=== PATIENT | female | born 1955 | race Caucasian/White ===

== ENCOUNTER 2024-12-08 13:43 | Emergency (ER) | payer OTHER, MEDICARE, SELFPAY ==
--- OUTSIDE RECORDS SUMMARY | 2024-12-08 13:46 | XMS_ITS | Clinical Summary ---
Author Organization [facility] Address [address] [place] [id number] Care Team Providers Care Terra Cotta Setter Name Role Phone Steven Torres MD Unavailable [phone] Meggan Garcia DO Primary Care Provider [phone] Allergies Active Allergy Reactions Criticality Noted Date Comments Latex Rash 09/20/2023 Morphine Vomiting High 04/11/2010 Medications propylene glycol (Systane Complete) 0.6 % ophthalmic solution Place into the eye(s). 0 1 Active cetirizine (ZYRTEC) 10 mg tablet Take 1 Tablet (10 mg) by mouth once daily. 0 3 Active cholecalciferol, Vitamin D3, (Vitamin D-3) 5,000 unit tab tabletIndication s:Vitamin D deficiency Take 1 Tablet (5,000 units) by mouth once daily. 90 Tablet 4 Active fluticasone (50 mcg per actuation) nasal solution (FLONASE)Indicat ions:Allergic rhinitis, unspecified seasonality, unspecified trigger INHALE 1-2 SPRAYs INTO BOTH NOSTRILS ONCE DAILY. 32 g 3 5 Active calcium carbonate 600 mg calcium (1,500 mg) tablet Take 1 Tablet (600 mg) by mouth two times daily with meals. 5 Active Active Problems Problem Noted Date Diagnosed Date Basal cell carcinoma 09/20/2023 Osteopenia of multiple sites 10/06/2017 Overview (10/06/2017): DXA 2015 Multinodular goiter 04/13/2013 Overview (09/25/2016): 12/2012, follow up US 6 mo follow up ultrasound 2014 and 2016 stable; Dr. Torres recommends follow up ultrasound 2018; any change, refer back. No change, then repeat 2023. Colon polyp 05/25/2011 Overview (10/15/2020): Colonoscopy 05/2011 polyp repeat in 5 years Flexible sigmoidoscopy 10/2015 large polyp, repeat colonoscopy this summer Colonoscopy 11/2015 multiple colon polyps, consider genetic testing, repeat in 2 years Colonoscopy 10/2017 polyps, repeat in 3 years Colonoscopy 10/2020 normal, [facility] in 5 years [facility] Vitamin D deficiency 04/14/2010 Umbilical hernia without mention of obstruction or gangrene 04/11/2010 Calculus of gallbladder with out mention of cholecystitis or obstruction 02/27/2010 Allergic rhinitis, cause unspecified 08/16/2007 Dysthymic disorder 10/14/2006 Resolved Problems Problem Noted Date Diagnosed Date Resolved Date Adjustment disorder with mix ed anxiety and depressed mood 04/05/2018 04/24/2019 External hemorrhoid 08/27/2015 04/24/20 Mixed urge and stress incontinence 11/30/2012 04/24/2019 Adjustment disorder with anxiety 01/31/2007 04/11/2010 Encounters Date Type Department Care Team Description 11/30/2024 1:15 PM CDT Ancillary Procedure [facility] [place] [address] [facility] [address] [place] [address] 11/30/2024 Travel 11/26/2024 Travel 11/03/2024 7:40 AM CDT Office Visit [facility] [address] [place] [address] Meggan Garcia, DO Medicare ANNUAL (subsequent) Visit (69 year old female); Derm Problem (L toe wart) 11/03/2024 Travel 10/29/2024 Travel 09/20/2024 Refill [facility] [address] [place] [address] Meggan Garcia, Refill Request (Fluticasone (50 Mcg Per Actuation) Nasal) from Last 3 Months Immunizations Immunization Administration Dates Next Due AMB Influenza, IIV4 PF (=>6 mos Flulaval,Fluzone Fluarix)(Flu Clinic Only) 04/19/2018 COVID-19 VACCINE COMIRNATY (EldarionNTCibiem 30MCG/0.3ML) 12YO+ PFS 03/12/2023 COVID-19 vaccine (Dokogeo NTClout 30mcg/0.3mL) PF, MDV 03/31/2021,09/18/2020,08/28/2020 Influenza, High-dose Inactivated 03/05/2024 Influenza, High-dose Quadriv alent Inactivated 03/12/2023 Influenza, IIV3 (Age 6-35 mos) 04/22/2011 Influenza, IIV3 (Age >=3 years) 03/29/20 16,03/29/2015,03/20/2013,2011,04/22/2011,03/21/2010,03/14/2010 Influenza, IIV4 04/16/2021,03/06/2019,03/24/2017 Influenza, IIV4 (=>6mos) MDV 03/14/2020 Influenza,CCIIV4 PRESERV FREE 03/09/2022 Pneumococcal Conj 20-valent (Prevnar 20) 09/16/2022 Td (Age >=7 Years) 06/02/2018,06/06/1997 Tdap 11/25/2007 Zoster (Shingrix-RZV, recombinant) 05/11/2018, Family History Medical History Relation Name Comments Hyperlipidemia Brother 1 Hypertension Brother 2 Hyperlipidemia Brother 3 [place] Hypertension Brother 3 [place] Good Health Daughter Isabelle Cancer Father Lars melanoma, and h as had polyps Coronary artery disease Father Lars Heart Disease Father Lars Heart failure Father Lars Psychiatric illness Father Lars depressi on No Known Problems Half-Brother No Known Problems Half-Sister Cancer-breast Maternal Aunt 1 xx Cancer-breast Maternal Aunt 2 Alva Unknown Maternal Aunt 2 Alva No Known Problems Maternal Grandfather No Known Problems Maternal Grandmother No Known Problems Maternal Uncle Cancer Mother Veronica leukemia, in 2004/melanoma Osteoporosis Mother Veronica Cancer-breast Other 2nd cousin Cancer-colon Other dad, polyps No Known Problems Paternal Aunt Heart Disease Paternal Grandfather No Known Problems Paternal Grandmother No Known Problems Paternal Uncle Psychiatric illness Sister Unknown Sister rosamarniea Good Health Son Filemon rheumatoid arth ritis Rheum arthritis Son Filemon Relation Name Status Comments Brother 1 Brother 2 Brother 3 [place] Daughter Isabelle Alive Father Lars Half-Brother Half-Sister Maternal Aunt 1 xx Maternal Aunt 2 Alva Maternal Grandfather Maternal Grandmother Maternal Uncle Mother Veronica Other Other spouse of complications of alcohol abuse, substance abuse Paternal Aunt Paternal Grandfather Paternal Grandmother Paternal Uncle Sister Son Filemon Alive Social History Tobacco Use Types Packs/Day Years Used Date Smoking Tobacco: Never Smokeless Tobacco: Never Tobacco Cessation:Counseling Given: Yes Comments:secondhand smoke as a child Alcohol Use Standard Drinks/Week Comments Yes 0 (1 standard drink = 0.6 oz pur e alcohol) PHQ-2 Answer Date Recorded PHQ-2 TOTAL SCORE 0 11/03/2024 Social Connections Answer Date Recorded Do you often feel lonely or isolated from those around you? 0 10/29/2024 Financial Resource Strain Answer Date R ecorded Difficulty of Paying Living Expenses 3 10/29/2024 Difficulty of Paying Living Expenses Not on file 10/29/2024 Food Insecurity Answer Date Recorded Do you worry your food will run out before you are able to buy more? 1 10/29/2024 Transportation Needs Answer Date Record ed Does lack of transportation keep you from medica l appointments? 1 10/29/2024 Does lack of transportation keep you from work, meetings or getting things that you need? 1 10/29/2024 Housing Stability Answer Date Recorded What is your housing situation today? 1 10/29/2024 Utilities Answer Date Recorded Do you have trouble paying f or utilities (for example, heat, electricity, water, phone)? 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 on file Not on file Not on anant e Obstetrics History Para Term AB IAB SAB Ectopic Multiple Livin g Live Births 3 1 2 2 1 2 Date Outcome GA Total Labor Labor/2nd/3rd Weight Sex Type Anes PTL Pilar A1 A5 Name Clin SAB SAB Para Last Filed Vital Signs Vital Sign Reading Time Taken Comments Blood Pressure 108/68 11/03/2024 7:47 AM CDT Pulse 69 11/03/2024 7:47 AM CDT Temperature 36.9 C (98.4 F) 07/26/2024 8:47 AM MEDICARE BILLER Respiratory Rate 14 01/24/2024 3:22 PM CDT Oxygen Saturation 99% 11/03/2024 7:47 AM CDT Inhaled Oxygen Concentration - - Weight 64.7 kg (142 lb 9.6 oz) 11/03/2024 7:47 A M CDT Height 164.5 cm (5' 4.76) 11/03/2024 7:47 AM CD T Body Mass Index 23.9 11/03/2024 7:47 AM CDT Plan of Treatment Upcoming Encounters Date Type Department Care Team (Late st Contact Info) Description 12/22/2024 7:30 AM CDT Ancillary Procedure [facility] [address] [place] [address] Health Maintenance Due Date Last Done Comments COVID-19 vaccine series ( season) 2024 03/05/2024, 09/09/2023, 03/12/2023, Additional history exists Mammogram for age 45-75 06/01/2025 06/01/20, 05/18/2024, 05/11/2023, Additional history exists Colonoscopy through age 75 10/11/202510/11, 10/11/2020, 10/29/2017, Additional history exists BMI (ht and wt on same day) for age 18+ 11/03/2025 11/03/2024, 09/20/2023, 09/16/2022, Additional history exists Depression screening for age 12+ 11/03/2025 11/03/2024, 09/20/2023, 09/20/2023, Additional history exists Medicare Wellness for age 65+ 11/04/2025 11/03/2024, 09/20/2023, 09/16/2022 Tetanus booster 06/02/2028 06/02/2018, 11/12, 06/06/1997 Lipids for age 45-75 11/03/2029 11/03/2024, 09/20/2023, 09/16/2022, Additional history exists RSV vaccine for adults or (1 - 1-dose 75+ series) 2032 Tdap Completed 11/25/2007 Zoster (shingles) series for age 50+ Completed 05/11/2018, 03/10/2018 Hepatitis C screening for age 18-79 Completed 04/24/2019 Pneumococcal series for age 50+ Completed 09/16/2022 DEXA/DXA scan for age 65+ Completed 2023, 09/18/2020, 10/07/2017, Additional history exists Influenza Vaccine Completed 03/05/2024, , 04/16/2021, Additional history exists Hepatitis B series for 19+ Aged Out N o longer eligible based on patient's age to complete this topic Procedures Procedure Name Priority Date/Time Associated Diagnosis Comments CT CARDIAC CALCIUM SCORE ONLY WO SINGLE READ Routine 11/30/2024 1:53 PM CDT Family history of ischemic heart disease LIPID PANEL W REFLEX MEASURED LDL Routine 11/03/2024 8:34 AM CDT Screening cholesterol level Hyperlipidemia, unspecified hyperlipidemia type GLUCOSE, RANDOM Routine 11/03/2024 8:34 AM CDT Diabetes mellitus screening XR MAMMO RENETTA UNI ADDL VIEWS LEFT GEE 06/01/2024 2:10 PM MEDICARE BILLER Abnormal mammogram XR DXA BONE DENSITY 2 SITES AXIAL Routine 09/20/2023 8:46 AM CDT Screening for osteoporosis Postmenopausal COLONOSCOPY 10/11/2020 7:28 AM CDT ANTI HCV Routine 04/24/2019 11:20 AM MEDICARE BILLER Need for hepatitis C screening test from Last 3 Months or Most Recently Relevant to Health Maintenance Results * CT CARDIAC CALCIUM SCORE ONLY WO SINGLE READ (11/30/2024 1:53 PM CDT) Anatomical Region Laterality Modality Computed Tomogra phy 11/30/2024 9:58 PM CDT Narrative 11/30/2024 9:58 PM CDT For Patients: As a result of the Century Cures Act, medical imaging exams and procedure reports are released immediately into your electronic medical record. You may view this report before your referring provider. If you have questions, please contact your health care provider. CT CARDIAC CALCIUM SCORING PATIENT HISTORY: Screening for coronary artery disease REPORT: High-resolution, ECG-synchronized noncontrast computed tomography of the heart with attention to the coronary arteries was performed. Coronary calcification analyzed using Siemens calcium scoring software. These are the results of the evaluation: CT Calcium Scoring: This cardiac CT examination will provide you with a coronary artery calcium score. A coronary artery calcium score is a measurement of the amount of calcified plaque in the coronary arteries, the arteries that supply blood to the heart muscle. The coronary artery calcium score is calculated based on the number, size, and density of the calcified plaques in the coronary arteries. The amount of calcified coronary plaque has been shown to directly correlate with future risk for heart disease. The coronary artery calcium is a marker of how much plaque has accumulated in the alonso of the coronary arteries. It is not a test for blockages. This test is intended to assess cardiovascular risk in patients without symptoms. It is not intended to be a test for individuals with chest pain or other possible symptoms suggestive of heart disease. If you are having chest pain or other potential cardiovascular symptoms, see your physician. Calcium Score: Left main = 0 Left anterior descending = 0 Left circumflex = 0 Right coronary artery = 0 Total calcium score = 0 This places the patient at the 0th percentile for matched age and gender. No Calcified Plaque Seen. Assessment: Your cardiac CT examination has shown no measurable calcified coronary plaque. Your coronary artery calcium score is zero. Having zero calcified plaque in the arteries that supply your heart is associated with a low risk for heart attack over the next 5 years. As discussed above, the coronary artery calcium score is intended for risk assessment in patients without cardiovascular symptoms. The low risk associated with having zero calcified plaque does not apply to individuals who are having symptoms. If you are having chest pain or other potential cardiovascular symptoms, see your physician. Recommendations: To maintain a low cardiovascular risk, we strongly recommend adherence to healthy lifestyle behaviors including: - Following a heart healthy diet focused on modest portion sizes, a high intake of fresh fruits and vegetables, whole grains, healthy fats (olive oil, nuts and seeds, avocados), and healthy proteins (unprocessed meats, fish, legumes). - Following an active lifestyle including 30-45 minutes of moderate intensity exercise 5-6 times per week - Avoidance of tobacco products. The scientific evidence would suggest that the majority of individuals with a coronary artery calcium score of zero are at low risk for a heart attack, low enough risk that they are unlikely to benefit from preventive cardiovascular medication including aspirin and the cholesterol lowering statin medications. We recommend that individuals with a coronary artery calcium score of zero avoid taking a daily aspirin to prevent heart disease, as they are unlikely to benefit from aspirin, and aspirin use is associated with a small increase in the risk of bleeding. Unless you have markedly elevated cholesterol or diabetes, the scientific evidence would suggest that individuals with a calcium score of zero can potentially avoid taking cholesterol-lowering medications for the next 3-5 years. These recommendations are generalized and may not specifically apply to you as an individual. Your primary care physician is in the best position to provide advice on your care and clinical decisions should ultimately be made by you and your physician. EXTRACARDIAC STRUCTURES: Lobulated area of low-density in the liver increased since the previous calcium score October 2014. Hepatic cysts could be considered. Given the increase in size in the incomplete visualization would suggest correlation with a limited abdominal ultrasound of the liver. Please note that all CT scans at this facility use dose modulation, iterative reconstruction, and/or weight-based dosing when appropriate to reduce radiation dose to as low as reasonably achievable. Dictated by Mateusz Mackey MD @ 11/30/2024 9:58:55 PM (Electronically Signed) Procedure Note Mateusz Mackey MD - 11/30/2024 For Patients: As a result of the 21st Century Cures Act, medical imagingexams and procedure reports are released immediately into your electronicmedical record. You may view this report before your referring provider.If you have questions, please contact your health care provider. CT CARDIAC CALCIUM SCORING PATIENT HISTORY: Screening for coronary artery disease REPORT: High-resolution, ECG-synchronized noncontrast computed tomographyof the heart with attention to the coronary arteries was performed. Coronary calcification analyzed using Siemens calcium scoring software.These are the results of the evaluation: CT Calcium Scoring: This cardiac CT examination will provide you with acoronary artery calcium score. A coronary artery calcium score is ameasurement of the amount of calcified plaque in the coronary arteries,the arteries that supply blood to the heart muscle. The coronary arterycalcium score is calculated based on the number, size, and density of thecalcified plaques in the coronary arteries. The amount of calcifiedcoronary plaque has been shown to directly correlate with future risk forheart disease. The coronary artery calcium is a marker of how much plaque has accumulatedin the alonso of the coronary arteries. It is not a test for blockages.This test is intended to assess cardiovascular risk in patients withoutsymptoms. It is not intended to be a test for individuals with chest painor other possible symptoms suggestive of heart disease. If you are havingchest pain or other potential cardiovascular symptoms, see yourphysician. Calcium Score: Left main = 0 Left anterior descending = 0 Left circumflex = 0 Right coronary artery = 0 Total calcium score = 0 This places the patient at the 0th percentile for matched age andgender. No Calcified Plaque Seen. Assessment: Your cardiac CT examination has shown no measurable calcifiedcoronary plaque. Your coronary artery calcium score is zero. Having zero calcified plaque in the arteries that supply your heart isassociated with a low risk for heart attack over the next 5 years. As discussed above, the coronary artery calcium score is intended for riskassessment in patients without cardiovascular symptoms. The low riskassociated with having zero calcified plaque does not apply to individualswho are having symptoms. If you are having chest pain or other potentialcardiovascular symptoms, see your physician. Recommendations: To maintain a low cardiovascular risk, we strongly recommend adherence tohealthy lifestyle behaviors including: - Following a heart healthy diet focused on modest portion sizes, a highintake of fresh fruits and vegetables, whole grains, healthy fats (oliveoil, nuts and seeds, avocados), and healthy proteins (unprocessed meats,fish, legumes). - Following an active lifestyle including 30-45 minutes of moderateintensity exercise 5-6 times per week - Avoidance of tobacco products. The scientific evidence would suggest that the majority of individualswith a coronary artery calcium score of zero are at low risk for a heartattack, low enough risk that they are unlikely to benefit from preventivecardiovascular medication including aspirin and the cholesterol loweringstatin medications. We recommend that individuals with a coronary artery calcium score of zeroavoid taking a daily aspirin to prevent heart disease, as they areunlikely to benefit from aspirin, and aspirin use is associated with asmall increase in the risk of bleeding. Unless you have markedly elevated cholesterol or diabetes, the scientificevidence would suggest that individuals with a calcium score of zero canpotentially avoid taking cholesterol-lowering medications for the next 3-5years. These recommendations are generalized and may not specifically apply velma as an individual. Your primary care physician is in the best positionto provide advice on your care and clinical decisions should ultimately bemade by you and your physician. EXTRACARDIAC STRUCTURES: Lobulated area of low-density in the liver increased since the previouscalcium score October 2014. Hepatic cysts could be considered. Given theincrease in size in the incomplete visualization would suggest correlationwith a limited abdominal ultrasound of the liver. Please note that all CT scans at this facility use dose modulation,iterative reconstruction, and/or weight-based dosing when appropriate toreduce radiation dose to as low as reasonably achievable. Dictated by Mateusz Mackey MD @ 11/30/2024 9:58:55 PM (Electronically Signed) us Meggan Garcia DO CT Final Result * LIPID PANEL W REFLEX MEASURED LDL (11/03/2024 8:34 AM CDT) CHOLESTEROL, TOTAL 199 <200 mg/dL [facility] HDL CHOLESTEROL 86 > OR = 50 mg/dL [facility] TRIGLYCERIDES 49 <150 mg/dL [facility] LDL-CHOLESTEROL 99 mg/dL (calc) [facility] Comment: Reference range: <100 Desirable range <100 mg/dL for primary prevention; <70 mg/dL for patients with CHD or diabetic patients with > or = 2 CHD risk factors. LDL-C is now calculated using the Uriel calculation, which is a validated novel method providing better accuracy than the Friedewald equation in the estimation of LDL-C. Chan SIMON et al. YUE. 2013;310(19): 3237-2466 (http://education.TheySay.Popcuts/faq/PLE137) CHOL/HDLC RATIO 2.3 <5.0 (calc) [facility] NON HDL CHOLESTEROL 113 <130 mg/dL (calc) [facility] Comment: For patients with diabetes plus 1 major ASCVD risk factor, treating to a non-HDL-C goal of <100 mg/dL (LDL-C of <70 mg/dL) is considered a therapeutic option. Blood BLOOD SPECIMEN / Unknown 11/03/2024 8:34 AM CDT 11/03/2024 8:35 AM CDT Narrative [facility] - 11/04/2024 8:23 AM CDT FASTING:NO FASTING: NO [employer] DO CHEMISTRY Final Result [facility] [address] [place] [address], [facility] [address] [facility] [place] [address] * (ABNORMAL) GLUCOSE, RANDOM (11/03/2024 8:34 AM CDT) GLUCOSE, RANDOM 64(L) <140 mg/dL [facility] Blood BLOOD SPECIMEN / Unknown 11/03/2024 8:34 AM CDT 11/03/2024 8:35 AM CDT Narrative [facility] - 11/04/2024 8:23 AM CDT FASTING:NO FASTING: NO [employer] DO CHEMISTRY Final Result [facility] [address] [place] [address], [email or web address] [address] [place] [address] * XR MAMMO RENETTA UNI ADDL VIEWS LEFT (06/01/2024 2:10 PM MEDICARE BILLER) Anatomical Region Laterality Modality BREASTS, Breast Left Mammography 06/01/2024 2:35 PM MEDICARE BILLER Impressions 06/01/2024 3:10 PM MEDICARE BILLER No suspicious findings. No evidence of malignancy. RECOMMENDATIONS: Routine screening mammography. Results and recommendations were discussed with the patient at the time of the exam. BI-RADS Category 2: Benign Dictated by: Tom Toro MD @06/01/2024 2:35:35 PM/lily PATIENTS: You will also receive a letter with your examination results in an easy to read format. If you have questions about your results, please contact your referring provider. Narrative 06/01/2024 3:10 PM MEDICARE BILLER For Patients: As a result of the Century Cures Act, medical imaging exams and procedure reports are released immediately into your electronic medical record. You may view this report before your referring provider. If you have questions, please contact your health care provider. ADDITIONAL VIEWS LEFT DIGITAL MAMMOGRAM USING TOMOSYNTHESIS, 06/01/2024 LEFT BREAST ULTRASOUND, 06/01/2024 CLINICAL HISTORY: LEFT breast mass/asymmetry. COMPARISON: 05/18/2024, 05/11/2023, 05/05/2022. TECHNIQUE: Digital LEFT mammogram in two projections. Tomosynthesis was used in this interpretation. Real-time ultrasound imaging of LEFT breast with imaging documentation. BREAST COMPOSITION: The breasts are heterogeneously dense, which may obscure small masses. FINDINGS: Additional mammogram images LEFT breast submitted. Decreased conspicuity of focal asymmetric density LEFT breast. No architectural distortion. No suspicious calcifications. Targeted LEFT breast ultrasound performed at 3 o'clock 2 cm from the nipple. Normal fibroglandular tissue is present. No fibrocystic change or solid mass. us Meggan Pilar Shaqra DO MAMMO Final Result * (ABNORMAL) XR DXA BONE DENSITY 2 SITES AXIAL (09/20/2023 8:46 AM CDT) Anatomical Region Laterality Modality Spine, HIPS, HIPL, HIPR Other Impressions 09/21/2023 1:56 PM CDT Osteopenia. RECOMMENDATIONS: The National Osteoporosis Foundation recommends pharmacologic treatment for patients with T-scores of -2.5 or less, patients with prior history of fragility fractures, or patients with 10-year probability of greater than 3% at hips or greater than 20% of suffering major osteoporotic fractures. Recommend continued optimization of calcium and vitamin D intake through dietary means and/or supplementation and regular exercise. Repeat scan recommended in 3-5 years. Courtney Mejia PA-C [facility] 09/21/2023 Narrative 09/21/2023 1:56 PM CDT For Patients: Results are automatically released to your [facility] ([employer]) account once available, in compliance with federal regulations. This means that you may see your results before your provider has had a chance to review them. Please allow 2-3 business days for your provider to comment on the results. XR DXA Bone Mineral Density (BMD) EXAM LOCATION: [address] [address] PATIENT NAME: Maria Antonia tSeen DATE OF : 1955 EXAM DATE: 09/20/2023 REQUESTING PROVIDER: Meggan Garcia DO GENDER AT : female HEIGHT: 5' 4.76 (09/20/2023) WEIGHT: 146 lb 11.2 oz (09/20/2023) MENOPAUSAL STATUS: Postmenopausal RACE/ETHNICITY: White RISK FACTORS: Family History of Osteoporosis and White Race CURRENT MEDICATION FOR BONE LOSS: NONE INDICATION: Follow-up of existing osteopenia and Post-Menopause COMPARISON DATE(S): 2020 DXA scans are compared to prior studies for a patient only when the two (or more) studies were performed on the same scanner. It is not possible to compare data generated on one scanner to data from another because there are not standards in DXA equipment. This applies even if the two scanners are made by the same border patrol agent. PROCEDURE: Dual-energy x-ray absorptiometry performed with routine technique. Reporting is completed in the form of a T-score. The T-score represents the standard deviation from peak bone mass based on young healthy adult. A Z-score is used for diagnosis in premenopausal women, and for men under the age of 50. FINDINGS: RESULT LUMBAR SPINE L1 - L4 BMD: 1.120 g/cm2 T-Score: - 0.6 Z-Score: + 1.0 Change from prior in 2020: Decrease 2.6%. RESULTS FEMUR Left femoral neck BMD: 0.802 g/cm2 T-Score: - 1.7 Z-Score: - 0.2 Change from prior in 2020: Decrease 1.6%. Right femoral neck BMD: 0.788 g/cm2 T-Score: - 1.8 Z-Score: - 0.3 Change from prior in 2020: Decrease 4.5%. Left hip BMD: 0.791 g/cm2 T-Score: - 1.7 Z-Score: - 0.5 Change from prior in 2020: Decrease 0.5%. Right hip BMD: 0.812 g/cm2 T-Score: - 1.6 Z-Score: - 0.3 Change from prior in 2020: Decrease 5.9%. WHO criteria: Normal: T-score at or above -1 SD Osteopenia: T-score between -1.1 and -2.4 SD Osteoporosis: T-score at or below -2.5 SD FRAX RISK CALCULATION (USED FOR OSTEOPENIA ONLY): 10-year probability of major osteoporotic fracture: 10.1%. 10-year probability of hip fracture: 1.4%. us Meggan Pilar Garcia DO DEXA Final Result * COLONOSCOPY (10/11/2020 7:28 AM CDT) 10/11/2020 7:28 AM CDT Narrative Transcriptions Chan Leiva MD - 10/11/2020 8:49 AM CDT Patient Name: Maria Antonia Steen Procedure Date: 10/11/2020 Gender: Female Date of : 1955 Admit Type: Outpatient Procedure: Colonoscopy Proceduralist: Chan Leiva MD , Mary Jo Fleming, RN(Nurse) Indications/Pre-Op Diagnosis: Surveillance: Personal history ofadenomatous polyps on last colonoscopy 3 years ago, Last colonoscopy: October 2017 Medications: Fentanyl 100 micrograms IV, Midazolam 1.5 mg IV, The level of sedation administered was moderate Procedure Description: The patient had risks, benefits and alternatives explained to andgave informed consent. The patient had a stable cardiopulmonary status and judged an adequate candidate for conscious sedation. The [id number] [id number] was passed through the anus and advanced tothe cecum, identified by appendiceal orifice and ileocecal valve. The colonoscopy was performed without difficulty. The patient toleratedthe procedure well. The quality of the bowel preparation was good. The ileocecal valve, appendiceal orifice, and rectum were photographed. Complications: No immediate complications. Estimated Blood Loss & Specimen: Estimated blood loss: none. Specimen collected - Yes and sent to Laboratory Findings: The perianal and digital rectal examinations were normal. A 3 mm polyp was found in the hepatic flexure. The polyp was sessile. The polyp was removed with a cold biopsy forceps. Resection and retrieval were complete. The colon (entire examined portion) was significantly redundant. Advancing the scope required changing the patient to a proneposition. The exam was otherwise without abnormality. Impressions/Post-Op Diagnosis: - One 3 mm polyp at the hepatic flexure, removed with a cold biopsy forceps. Resected and retrieved. - Redundant colon. - The examination was otherwise normal. Recommendation: - Patient has a contact number available for emergencies. The signsand symptoms of potential delayed complications were discussed with the patient. Return to normal activities tomorrow. Written discharge instructions were provided to the patient. - Patient has a contact number available for emergencies. The signsand symptoms of potential delayed complications were discussed with the patient. Return to normal activities tomorrow. Written discharge instructions were provided to the patient. - Resume previous diet. - Continue present medications. - Await pathology results. - Repeat colonoscopy in 5 years for surveillance with adult scope and colowrap at hospital. Moderate Sedation: Moderate (conscious) sedation was administered by the endoscopy nurse and supervised by the endoscopist. The following parameters were monitored: oxygen saturation, heart rate, respiratory rate, blood pressure, adequacy of pulmonary ventilation and reponse to care. Please refer to the patient's medical record flowsheets and nursing notes for moderate sedation details. Total physician intraservice time was 30 minutes. Chan Leiva MD 10/11/2020 8:49:19 AM This report has been signed electronically. Note Initiated On: 10/11/2020 7:28 AM Procedure Code(s): --- Professional --- 43467, Colonoscopy, flexible; with biopsy, single or multiple Diagnosis Code(s): --- Professional --- Z86.010, Personal history of colonicpolyps K63.5, Polyp of colon Q43.8, Other specified congenitalmalformations of intestine CPT copyright 2019 [employer]. All rights reserved. The codes documented in this report are preliminary and upon certified medical coder reviewmay be revised to meet current compliance requirements. Scope In: 8:03:07 AM Scope Withdrawal Time 0 hours 8 minutes 56 seconds Scope Out: 8:31:28 AM us Chan Leiva MD PROCEDURE ORD Final Res ult * ANTI HCV (04/24/2019 11:20 AM MEDICARE BILLER) HEPATITIS C ANTIBODY Non-React cezar Non-React cezar 04/24/2019 5:32 PM MEDICARE BILLER [facility] Comment:Antibodies to HCV no t detected; does not exclude the possibility of exposure to HCV. Blood BLOOD SPECIMEN / Unknown Venipuncture / Unknown 04/24/2019 11:20 AM MEDICARE BILLER 04/24/2019 11:22 AM MEDICARE BILLER us Marilia Valadez MD SEND OUTS Final Result [facility] [address] [place] [address], [place] from Last 3 Months or Most Recently Relevant to Health Maintenance Insurance [employer] [place] PB ONLY MEDICARE PART A HB ONLY MEDICARE PART B HB ONLY [employer] SOL[employer] HB Advance Directives Documents on File Type Date Recorded Patient Contact And Service Clerks Supervisor Expl anation Healthcare Directive 03/15/2023 023 Care Teams [place] Setter Relationship Specialty Start Date End Date Meggan Garcia DO [address] [place] [address] PCP - General Family Practice 10/09/22 Steven Torres MD [address] [facility] [address] [place] [address] Endocrinology 09/18/15
[2024-12-08 13:47] VITALS: BP 161/81; PULSE 81; RESP 16; TEMP 36.8; O2SAT 98
--- NOTE | 2024-12-08 14:10 | ED.GENADULT ---
HPI - General Adult General Date Seen: 12/08/24 Chief complaint: Laceration/Wound Stated complaint: Cut on forehead, rt side Time Seen by Provider: 12/08/24 13:51 History of Present Illness HPI narrative: Patient is a 69-year-old woman who denies significant medical history, she was at work, leaned forward to pick something up off the ground and hit her head on a metal edge of a dumpster, cutting her forehead. No loss of consciousness or other complaints. Bleeding controlled. Immunizations up-to-date. Related Data Home Medications ?Medication ?Instructions ?Recorded ?Confirmed cetirizine 10 mg tablet (24Hour 10 mg PO DAILY 12/08/24 12/08/24 Allergy) fluticasone propionate 50 1 - 2 spray intranasal DAILY 12/08/24 12/08/24 mcg/actuation nasal spray,suspension Allergies Allergy/AdvReac Type Severity Reaction Status Date / Time morphine AdvReac Intermediate Vomiting Verified 12/08/24 13:47 PFSH PFS Medical History Health care directive on file ?Z78.9 - Other specified health status (ICD-10) Exam Narrative: Exam Narrative: Vital signs reviewed In general, alert, nontoxic woman. Head: Normocephalic. In the middle of her forehead there is a vertically oriented laceration, in total this is about 2 cm in length. There is 1 cm that is deeper into the subcutaneous tissues, the lower 1 cm this is more superficial just into the dermis. Bleeding controlled. No apparent injury to deeper structures. Const: Vital Signs, click to edit/add: Vital Signs - 24 hr 12/08/24 13:47 Temperature 98.3 F Pulse Rate [Pulse Oximeter] 81 Respiratory Rate 16 Blood Pressure [Le ft Upper Arm] 161/81 H Pulse Oximetry 98 Oxygen Delivery Me thod Room Air Course Course ED Course: Overall, wound was amenable to closure with Dermabond. Procedure note: Wound was gently cleaned, edges approximated and then closed with Dermabond. There was a little bit of bleeding that started as I applied the Dermabond but edges remained well approximated. Tolerated well, no other immediate complication. Routine wound care and Dermabond care discussed. Return for signs of infection. Work note given to avoid significant lifting or exertion over the next few days. Return for signs of infection. Vital Signs Vital signs: Initial Vital Signs Temperature 98.3 F 12/08/24 13:47 Temperature Source Temporal Artery Scan 12/08/24 13:47 Pulse Rate 81 12/08/24 13:47 Respiratory Rate 16 12/08/24 13:47 Blood Pressure 161/81 H 12/08/24 13:47 Blood Pressure Mean 107 H 12/08/24 13:47 Blood Pressure Position Sitting 12/08/24 13:47 Pulse Oximetry 98 12/08/24 13:47 Oxygen Delivery Method Room Air 12/08/24 13:47 Vital Signs Temperature 98.3 F 12/08/24 13:47 Pulse Rate 81 12/08/24 13:47 Respiratory Rate 16 12/08/24 13:47 Blood Pressure 161/81 H 12/08/24 13:47 Pulse Oximetry 98 12/08/24 13:47 Oxygen Delivery Method Room Air 12/08/24 13:47 Temperature 98.3 F 12/08/24 13:47 Pulse Rate 81 12/08/24 13:47 Respiratory Rate 16 12/08/24 13:47 Blood Pressure 161/81 H 12/08/24 13:47 Pulse Oximetry 98 12/08/24 13:47 Oxygen Delivery Method Room Air 12/08/24 13:47 Discharge Plan Discharge Clinical Impression: Forehead laceration Patient Disposition: Home, Self-Care Condition: Improved Instructions: Laceration (DC), Skin Adhesive Care (ED) Additional Instructions: Routine wound care, avoid ointments until and unless you are at a point where you are trying to remove the glue. Return for any signs of infection. Prescriptions: No Action fluticasone propionate 50 mcg/actuation spray,suspension 1 - 2 spray INTRANASAL DAILY cetirizine [24Hour Allergy] 10 mg tablet 10 mg PO DAILY Follow Up/Referrals: Marilia Valadez MD [Referring, Family Practice] Stand [facility] Info Instructions
== END 2024-12-08 14:24 | disposition home or self-care (01) ==
PROVIDERS: Emergency Provider Emergency Medicine; PCP Family Medicine
DX: S01.81XA Laceration without foreign body of other part of head, initial encounter (principal); W22.09XA Striking against other stationary object, initial encounter
CPT/HCPCS: 12011; 99282; 99283